=== PATIENT | female | born 1965 | race Caucasian/White ===

== ENCOUNTER 2020-09-11 19:34 | Emergency (ER) | payer BC, SELFPAY ==
[2020-09-11 19:46] VITALS: BP 162/95; PULSE 92; RESP 18; TEMP 37.3; O2SAT 97
--- NOTE | 2020-09-11 20:18 | ED.GENADUL_ITS ---
Discharge Plan Disposition Patient Disposition: HOME Condition: Good Discharge Details Clinical Impression: Fish hook injury of finger Primary Care Provider: Unknown,Unknown ED Provider: Citlalli Almeida Home Meds and New Rx's Prescriptions: No Action No Known Home Meds RF: 0 Discharge Instructions Additional Instructions: Keep clean and dry Ibuprofen and Tylenol for pain control blood pressure rechecked by pcp in one week Watch for signs of infection and return earlier should you have redness, purulent drainage, or with any new or worsening complaints Medical Decision Making Removed without incident Dressing applied Return precautions discussed and patient expressed understanding, no evidence of residual foreign body, no indication for antibiotics Cleansed copiously Return precautions discussed and patient expressed understanding, discharged home in stable condition Patient aware that should she develop redness, swelling, discharge, fever that she will need to be reevaluated Blood pressure recheck by primary care physician in the outpatient setting recommended HPI General Mode of arrival: ambulatory . Date/Time Provider Initiated Documentation: 09/11/20 20:18 . Limitations to Documentation: no limitations . Information obtained by: patient . HPI Narrative: This patient reports fishhook to right second digit just prior to arrival. Tetanus reportedly up-to-date. Denies any additional injuries. Denies any anticoagulation. Related Data Home Medications Medication Instructions Recorded Confirmed Unknown [No Known Home Meds] 09/11/20 09/11/20 Allergies Allergy/AdvReac Type Severity Reaction Status Date / Time morphine Allergy Severe Itching Unverified 09/11/20 19:49 Sulfa (Sulfonamide Allergy Severe Hives Unverified 09/11/20 19:49 Antibiotics) General Stated Complaint: Laceration PARAM: 4 Review of Systems Narrative: Review of systems obtained x1 aside from where indicated in HPI negative PFSH Social History Smoking/Tobacco Use Status: Never Smoking risk assessment performed?: Yes Alcohol Intake: current Alcohol Intake frequency: holidays/special occasions only Alcohol type: wine and hard liquor Drug use: Never Substance use type: does not use Do you feel safe at home: Yes Do you feel safe in your relationship?: Yes Exam Extrem Hand/finger images: 1. [place] noted Course Vital Signs Vital signs: Vital Signs Temperature 37.3 C 09/11/20 19:46 Pulse 92 H 09/11/20 19:46 Respiratory Rate 18 09/11/20 19:46 Blood Pressure 162/95 H 09/11/20 19:46 Pulse Oximetry 97 07/10/21 19:46 Temperature 37.3 C 09/11/20 19:46 Pulse 92 H 09/11/20 19:46 Respiratory Rate 18 09/11/20 19:46 Respiratory Effort Short of Breath 09/11/20 19:49 Blood Pressure 162/95 H 09/11/20 19:46 Pulse Oximetry 97 09/11/20 19:46 Pain Level 1 09/11/20 19:46 Procedures Foreign Body Removal Time Out Performed: yes Site: right and upper extremity Description of foreign body: fish hook Confirmed by:: direct visualization Complications: none Post-procedure exam: awake, alert Neurovascular: normal distal pulse and normal capillary fill
== END 2020-09-11 20:35 | disposition home or self-care (01) ==
PROVIDERS: Emergency Provider Physician Assistant
DX: S61.242A Puncture wound with foreign body of right middle finger without damage to nail, initial encounter (principal); W26.8XXA Contact with other sharp object(s), not elsewhere classified, initial encounter
CPT/HCPCS: 99282; 99283